=== PATIENT | female | born 1985 | race American Indian/Alaskan Native ===

== ENCOUNTER 2017-03-25 12:07 | Emergency (ER) | payer SELFPAY ==
[2017-03-25 12:34] VITALS: BP 125/85
--- NOTE | 2017-03-25 15:24 | Emergency Department Report ---
ED Rash HPI - HPI Chief Complaint: Skin Rash Stated Complaint: RASH Time Seen by Provider: 03/25/17 14:23 Duration: 1 month Location: Upper Extremities Suspected Cause: Unknown Rash Symptoms: Yes Itching, No Facial Swelling, No Tongue/Oral Swelling, No Breathing Difficulties, No Choking Sensation, No Wheezing/Dyspnea, No Peeling, No Blistering, No Fever, No Lightheaded, No Malaise, No Myalgias Severity: mild Other History: This is a 31-year-old female well-nourished with nontoxic or ill in appearance that presents with round, dry and patchy looking rash to the right upper extremity 1 month. Patient stated it is getting worse and itching. Patient denies any sick contact. Patient stated prior to symptoms she was in a hotel. Patient denies any fever, chills, chest pain, short of breath, stiff neck, numbness, tingling, nausea, vomiting, abdominal pain. Patient denies any allergies. Denies significant past medical history. ED Review of Systems ROS: Stated complaint: RASH Other details as noted in HPI Constitutional: denies: chills, fever Eyes: denies: eye pain, eye discharge, vision change ENT: denies: ear pain, throat pain Respiratory: denies: cough, shortness of breath, wheezing Cardiovascular: denies: chest pain, palpitations Endocrine: no symptoms reported Gastrointestinal: denies: abdominal pain, nausea, diarrhea Genitourinary: denies: urgency, dysuria, discharge Musculoskeletal: denies: back pain, joint swelling, arthralgia Skin: rash, pruritus. denies: lesions Neurological: denies: headache, weakness, paresthesias Psychiatric: denies: anxiety, depression Hematological/Lymphatic: denies: easy bleeding, easy bruising ED Past Medical Hx - Past Medical History Hx Hypertension: Yes (NO MEDS) Additional medical history: OBESITY - Surgical History Additional Surgical History: RIGHT ankle surgery. TONSILLECTOMY - Social History Smoking Status: Current Some Day Smoker Substance Use Type: Alcohol - Medications Home Medications: Home Medications Medication Instructions Recorded Confirmed Last Taken Type Clotrimazole/Betamethasone Dip 15 gm TP BID #1 cream..g. 03/25/17 Unknown Rx [Clotrimazole-Betamethasone Crm] Rash Exam - Exam General: Vital signs noted. No distress. Alert and acting appropriately. GENERAL: The patient is a well-developed, well-nourished female in no apparent distress. Patient is alert and acting appropriately for age. Alert and oriented 3, no apparent distress, normal gait, atraumatic. HEENT: Head is normocephalic and atraumatic. PERRL, Extraocular muscles are intact. Pupils are equal, round, and reactive to light and accommodation. Nares appeared normal. Mouth is well hydrated and without lesions. Mucous membranes are moist. Posterior pharynx clear of any exudate or lesions. Mouth is well hydrated and without lesions. Tonsils not erythematous or swollen. Uvula midline. Tongue elevated. Mucous members are moist. Posterior pharynx clear, no exudate or lesions. Patent airways. No pus or driange. no dental caries. no gingivitis. No dental abscess noted. NECK: Supple. No carotid bruits. No lymphadenopathy or thyromegaly.nontender. No meningitic signs are noted. LUNGS: Clear to auscultation. Non labor breathing. No intercostal retractions. Symmetrical with respiration, no wheezing, no rales, or crackles. HEART: Regular rate and rhythm without murmur, rubs or gallops. No reproducible. S1, S2 present, regular rate and rhythm without murmur, no rubs, no gallops. ABDOMEN: Soft, nontender, and nondistended. Positive bowel sounds. No hepatosplenomegaly was noted. No guarding or rebound tenderness, negative epigastric bruit. Negative psoas sign, negative cisneros sign, negative McBurneys sign EXTREMITIES: Without any cyanosis, clubbing, rash, lesions or edema. Peripheral pulses intact. Capillary refill less than 2 seconds. Full range of motion bilaterally. NEUROLOGIC: Cranial nerves II through XII are grossly intact. Alert and oriented x 3. Normal gait. Symmetrical strength and sensation. Reflexes 2+ throughout. Cerebellar testing normal. GCS score of 15. PSYCHIATRIC: Normal affect with no suicidal or homicidal ideations. skin: Right arm pruritic rash with circular/oval erythematous with scaling patch HEENT: No Periorbital Edema, No Conjuctival Injection, No Chemosis, No Perioral Edema, No Tongue Edema, No Uvular Edema, No Compromised Airway, No Drooling Lungs: Yes Good Air Exchange (Normal Breath Sounds), No Wheezes, No Ronchi, No Stridor, No Cough, No Labored Respirations, No Retractions, No Use of Accessory Muscles, No Other Abnormal Lung Sounds Heart: Yes Regular, No Murmur Skin: Yes Erythema (slight), Yes Other (pruritic circular/oval erythematous with scaling patch), No Urticarial Rash, No Maculopapular Rash, No Morbilliform rash, No Bulla(e), No Excoriations, No Weeping, No Tenderness, No Edema, No Encrustations Other: Positive: Abdomen Normal, Neurologic Normal, Musculoskeletal Normal ED Course Vital Signs 03/25/17 12:30 Temperature 97.7 F Pulse Rate 84 Respiratory 17 Rate Blood Pressure 125/85 O2 Sat by Pulse 100 Oximetry - Reevaluation(s) Reevaluation #1: 03/25/17 15:28 Patient is resting in bed with no signs of distress noted./ ED Medical Decision Making - Medical Decision Making Ed course: This is a 31-year-old female that presents with tinea corporis 1- Patient received clotrimazole 1% BID x3 weeks at discharge 2- patient instructed to follow up with a PCP in 3-5 days or if symptoms worsen return to emergency room as was possible 3- at time time of discharge, the patient does not seem toxic or ill in appearance. No acute signs of distress noted. Patient agrees to discharge treatment plan of care. No further questions noted by the patient. Critical care attestation.: If time is entered above; I have spent that time in minutes in the direct care of this critically ill patient, excluding procedure time. ED Disposition Clinical Impression: Tinea corporis Disposition: DC-01 TO HOME OR SELFCARE Is pt being admited?: No Does the pt Need Aspirin: No Condition: Stable Instructions: Betamethasone/Clotrimazole (On the skin), Tinea Corporis (ED) Additional Instructions: Take clotrimazole as prescribed. Follow-up with your primary care doctor 3-5 days or if symptoms worsen continue return to emergency room. Prescriptions: Clotrimazole/Betamethasone Dip [Clotrimazole-Betamethasone Crm] 15 gm TP BID #1 cream..g. Referrals: BOBBI BREWSTER JR, MD [Staff Physician] - 3-5 Days [facility] [Outside] - 3-5 Days [facility] [Outside] - 3-5 Days PRIMARY CARE, [Primary Care Provider] - 3-5 Days Forms: Work/School Release Form(ED)
== END 2017-03-25 15:53 | disposition home or self-care (01) ==
LOC: ED 12:07
DX: B35.4 Tinea corporis (principal); I10 Essential (primary) hypertension; F17.210 Nicotine dependence, cigarettes, uncomplicated
CPT/HCPCS: 99282

== ENCOUNTER 2017-07-31 12:23 | Emergency (ER) | payer SELFPAY ==
[2017-07-31 13:38] LABS: Bacteria,Urine 1+ /HPF (Negative); Bilirubin,Urine NEG (Negative); Blood,Urine SM (Negative); Ketones,Urine NEG (Negative); Leukocyte Esterase,Urine LG (Negative); Mucus,Urine 1+ /HPF; Nitrite,Urine NEG (Negative); Protein,Urine <15 mg/dL mg/dL (Negative); Urobilinogen,Urine < 2.0 mg/dL (<2.0)
[2017-07-31] MEDS ORDERED: TETRACAINE 0.5% OU PRN (18:35)
[2017-07-31] MEDS ORDERED: FUL-GLO OP ONE ×2 (18:38)
[2017-07-31] MEDS ORDERED: TETRACAINE 0.5% ONE (18:38)
[2017-07-31] MEDS ORDERED: BSS ONE (18:38)
[2017-07-31] MEDS ORDERED: BSS OU ONE (18:42)
--- NOTE | 2017-07-31 19:07 | Emergency Department Report ---
ED General Adult HPI - General Chief complaint: Eye Problems Stated complaint: LEFT EYE RED Source: patient Mode of arrival: Ambulatory Limitations: No Limitations - History of Present Illness Initial comments: 31 y/o F presents with left eye redness, crusting, and matting together of the eyes that started 2 days ago. no known eye trauma. She denies being a contact lens wearer, but admits to wearing glasses. Pt denies any eye pain, sensitivity , or vision loss. No reported blurried vision. [place] and states that she may have come in contact with someone who may have had an eye infection. She denies any pain, headache, n/v, or vision changes. Pt also admits to frequency, urgency, and dysuria. LMP: 07/15/17. Pt has been taking OTC azo for the symptoms that has been helping. Pt denies any LBP, suprapubic pain, discharge, chest pain, SOB, nausea, or vomiting. NKDA. -: days(s) (2 days) Location: eyes Severity scale (0 -10): 0 Associated Symptoms: denies: confusion, chest pain, cough, fever/chills, headaches, nausea/vomiting, shortness of breath, weakness Treatments Prior to Arrival: other (OTC azo) - Related Data Previous Rx's Medication Instructions Recorded Last Taken Type Clotrimazole/Betamethasone Dip 15 gm TP BID #1 cream..g. 03/25/17 Unknown Rx [Clotrimazole-Betamethasone Crm] Ciprofloxacin HCl [Ciloxan] 5 ml OP DAILY #1 bottle 07/31/17 Unknown Rx Nitrofurantoin [place]/M-Cryst 100 mg PO Q12HR #14 capsule 07/31/17 Unknown Rx [Macrobid CAP] Allergies Allergy/AdvReac Type Severity Reaction Status Date / Time No Known Allergies Allergy Verified 03/25/17 12:34 ED Review of Systems ROS: Stated complaint: LEFT EYE RED Other details as noted in HPI Constitutional: denies: chills, fever Eyes: eye discharge. denies: eye pain, vision change ENT: denies: ear pain, throat pain Respiratory: denies: cough, shortness of breath, wheezing Cardiovascular: denies: chest pain, palpitations Gastrointestinal: denies: abdominal pain, nausea, diarrhea Genitourinary: urgency, dysuria, frequency. denies: discharge, abnormal menses Musculoskeletal: denies: back pain, joint swelling, arthralgia Skin: denies: rash, lesions Neurological: denies: headache, weakness, paresthesias Psychiatric: denies: anxiety, depression ED Past Medical Hx - Past Medical History Hx Hypertension: Yes (NO MEDS) Additional medical history: OBESITY - Surgical History Additional Surgical History: RIGHT ankle surgery. TONSILLECTOMY - Social History Smoking Status: Never Smoker Substance Use Type: None - Medications Home Medications: Home Medications Medication Instructions Recorded Confirmed Last Taken Type Clotrimazole/Betamethasone Dip 15 gm TP BID #1 cream..g. 03/25/17 Unknown Rx [Clotrimazole-Betamethasone Crm] Ciprofloxacin HCl [Ciloxan] 5 ml OP DAILY #1 bottle 07/31/17 Unknown Rx Nitrofurantoin [place]/M-Cryst 100 mg PO Q12HR #14 capsule 07/31/17 Unknown Rx [Macrobid CAP] ED Physical Exam - General Limitations: No Limitations General appearance: alert, in no apparent distress - Head Head exam: Present: atraumatic, normocephalic - Eye Eye exam: Present: normal appearance, PERRL, EOMI, conjunctival injection (of the left eye), other (visual ash was wnl). Absent: periorbital swelling, periorbital tenderness Pupils: Present: normal accommodation, other (there was no periorbital or orbital swelling noted on examination, there was no TTP of the orbital/ periorbital regions) - Expanded Eye Exam Expanded Pupils: Regular, Round: Bilateral, Reactive: Bilateral Sclera/Conjunctival: Normal Inspection: Bilateral, Injection: Left (there was no evidence of foreign body with inverting the left upper eyelid) Anterior chamber: Normal Inspection: Bilateral Posterior chamber: Normal Inspection: Bilateral Visual acuity (R) = 20/: 20 Visual acuity (L) = 20/: 25 With correction: No IOP (L) in mmH (average of readings) IOP measured with: Tonopen - ENT ENT exam: Present: mucous membranes moist - Neck Neck exam: Present: normal inspection, full ROM - Respiratory Respiratory exam: Present: normal lung sounds bilaterally. Absent: respiratory distress - Cardiovascular Cardiovascular Exam: Present: regular rate, normal rhythm. Absent: systolic murmur, diastolic murmur, rubs, gallop - GI/Abdominal GI/Abdominal exam: Present: soft (there was no abdominal tenderness noted in all 4 quadrants, no suprapubic pain), normal bowel sounds, other (no suprapubic pain) - Back Exam Back exam: Present: normal inspection, full ROM. Absent: tenderness, CVA tenderness (R), CVA tenderness (L), muscle spasm - Neurological Exam Neurological exam: Present: alert, oriented X3, normal gait - Psychiatric Psychiatric exam: Present: normal affect, normal mood - Skin Skin exam: Present: warm, dry, intact, normal color. Absent: rash - Other Other exam information: flurosecien staining of the eye: 1. one tetracaine drop were used to numb the eye 2. then fluroscien dye was placed in the eye 3. eye was visualized for foreign bodies, ulcers, or abrasions there was no evidence of such 4. the eye was then irrigated with saline thoroughly tonometry: 1. one tetacaine drop was used to anesthesize the eye 2. IOP was measured and averaged about 16 mmHg ED Course Vital Signs 07/31/17 07/31/17 12:31 19:26 Temperature 98.9 F Pulse Rate 100 H 67 Respiratory 16 18 Rate Blood Pressure 118/85 Blood Pressure 135/91 [Left] O2 Sat by Pulse 100 100 Oximetry - Eye Procedure Alcaine Drops Administered: No ED Medical Decision Making - Medical Decision Making I spoke with Dr. Garcia regarding this case. She stated to treat pt for the conjunctivitis at this time. I treated with with ciloxan eye drops. I also treated her UTI with macrobid. The average IOP pressures were around 13 mmHg, there was no evidence of corneal ulcers, abrasions, or foreign bodies with the fluoroscein lighting. Visual ahs, EOMI, and pupils were normal and reactive to light. Visual acuity was slightly dimished in the affected eye due to the conjuncitivits. There was mild crusting noted of the left eye. There was no ttp or periorbital/orbital swelling. Pt was discharged in stable condition, no resp distress, and vitals were stable. Critical care attestation.: If time is entered above; I have spent that time in minutes in the direct care of this critically ill patient, excluding procedure time. ED Disposition Clinical Impression: Conjunctivitis Qualifiers: Conjunctivitis type: acute Acute conjunctivitis type: bacterial Laterality: left Qualified Code(s): H10.32 - Unspecified acute conjunctivitis, left eye UTI (urinary tract infection) Qualifiers: Urinary tract infection type: acute cystitis Hematuria presence: with hematuria Qualified Code(s): N30.01 - Acute cystitis with hematuria Disposition: TO HOME OR SELFCARE Is pt being admited?: No Does the pt Need Aspirin: No Condition: Stable Instructions: Ciprofloxacin (Into the eye), Nitrofurantoin Combination (By mouth) Additional Instructions: Please use the antibiotics as prescribed to you. A urine culture has been obtained. It is crucial that you follow-up with the plate finisher within this week. Please also follow-up with PCP to ensure resolution of your UTI. Please return to the ER immediately if your symptoms acutely worsen or progress. Prescriptions: Ciprofloxacin HCl [Ciloxan] 5 ml OP DAILY #1 bottle Nitrofurantoin Wayne/M-Cryst [Macrobid CAP] 100 mg PO Q12HR #14 capsule Referrals: PRIMARY CAREMD [Primary Care Provider] - 3-5 Days [facility] [Outside] - 3-5 Days [facility] [Outside] - 3-5 Days BHAVANI CARCAMO MD [Staff Physician] - 3-5 Days Forms: Work/School Release Form(ED)
[2017-07-31 19:27] VITALS: BP 135/91
== END 2017-07-31 20:31 | disposition home or self-care (01) ==
LOC: ED 12:23
DX: H10.32 Unspecified acute conjunctivitis, left eye (principal); N39.0 Urinary tract infection, site not specified; I10 Essential (primary) hypertension; E66.9 Obesity, unspecified; Z90.89 Acquired absence of other organs
CPT/HCPCS: 81001; 81025; 87086; 99283

== ENCOUNTER 2018-06-26 21:40 | Emergency (ER) | payer SELFPAY ==
[2018-06-26] MEDS ORDERED: ASPIRIN PO ONE (22:47)
[2018-06-26 23:22] LABS: Basophils # (Auto) 0.1 K/mm3 (0.0-0.1); Basophils % (Auto) 1.3 % (0.0-1.8); Eosinophils # (Auto) 0.2 K/mm3 (0.0-0.4); Eosinophils % (Auto) 3.1 % (0.0-4.3); Hemoglobin 12.8 gm/dl (10.1-14.3); Lymphocytes # (Auto) 2.4 K/mm3 (1.2-5.4); Lymphocytes % (Auto) 39.2 % (13.4-35.0); Mean Corpuscular HGB Conc 34 % (30-34); Mean Corpuscular Hemoglobin 30 pg (28-32); Mean Corpuscular Volume 89 fl (79-97); Monocytes # (Auto) 0.6 K/mm3 (0.0-0.8); Monocytes % (Auto) 9.9 % (0.0-7.3); Platelet Count 222 K/mm3 (140-440); Red Blood Count 4.28 M/mm3 (3.65-5.03)
--- NOTE | 2018-06-26 23:54 | Emergency Department Report ---
ED Chest Pain HPI - General Chief Complaint: Chest Pain Stated Complaint: CHEST PAIN AND COLD Time Seen by Provider: 06/26/18 23:47 Source: patient Mode of arrival: Ambulatory Limitations: No Limitations - History of Present Illness Initial Comments: Patient c/o chest pain and chest congestion x 3 days. Complaint: chest pain -: Gradual, days(s) (3) Onset: during rest Pain Location: substernal Pain Radiation: none Severity: mild Severity scale (0 -10): 2 Quality: aching Consistency: intermittent Improves With: nothing Worsens With: nothing Other Symptoms: cough Treatments Prior to Arrival: none Aspirin use within the Past 7 Days: (0) No - Related Data On Oral Contraceptives: No Previous Rx's Medication Instructions Recorded Last Taken Type Clotrimazole/Betamethasone Dip 15 gm TP BID #1 cream..g. 03/25/17 Unknown Rx [Clotrimazole-Betamethasone Crm] Ciprofloxacin HCl [Ciloxan] 5 ml OP DAILY #1 bottle 07/31/17 Unknown Rx Nitrofurantoin [place]/M-Cryst 100 mg PO Q12HR #14 capsule 07/31/17 Unknown Rx [Macrobid CAP] Amoxicillin/Potassium Clav 1 each PO BID #20 tablet 06/27/18 Unknown Rx [Augmentin 875-125 Tablet] Ibuprofen [Motrin] 800 mg PO Q8HR PRN #20 tablet 06/27/18 Unknown Rx Allergies Allergy/AdvReac Type Severity Reaction Status Date / Time No Known Allergies Allergy Verified 03/25/17 12:34 Heart Score - HEART Score History: Slightly suspicious EKG: Normal Age: < 45 Risk factors: No known risk factors Troponin: < normal limit HEART Score: 0 - Critical Actions Critical Actions: 0-3 pts:0.9-1.7%risk of adverse cardiac event.Candidate for discharge ED Review of Systems ROS: Stated complaint: CHEST PAIN AND COLD Other details as noted in HPI Comment: All other systems reviewed and negative Constitutional: denies: chills, fever Eyes: denies: eye pain ENT: denies: ear pain Respiratory: cough. denies: orthopnea, shortness of breath, SOB with exertion Cardiovascular: chest pain, other (Worse with coughing.). denies: palpitations , dyspnea on exertion, orthopnea, edema, syncope Endocrine: no symptoms reported Gastrointestinal: denies: abdominal pain, nausea, vomiting, diarrhea Genitourinary: denies: urgency, dysuria, frequency Musculoskeletal: denies: back pain, joint swelling Skin: denies: rash, lesions Neurological: denies: headache, weakness, numbness, paresthesias Psychiatric: denies: anxiety, depression Hematological/Lymphatic: denies: easy bleeding, easy bruising ED Past Medical Hx - Past Medical History Previous Medical History?: Yes Hx Hypertension: Yes (NO MEDS) Hx Asthma: Yes Additional medical history: OBESITY - Surgical History Past Surgical History?: Yes Additional Surgical History: RIGHT ankle surgery. TONSILLECTOMY - Social History Smoking Status: Never Smoker Substance Use Type: Alcohol - Medications Home Medications: Home Medications Medication Instructions Recorded Confirmed Last Taken Type Clotrimazole/Betamethasone Dip 15 gm TP BID #1 cream..g. 03/25/17 Unknown Rx [Clotrimazole-Betamethasone Crm] Ciprofloxacin HCl [Ciloxan] 5 ml OP DAILY #1 bottle 07/31/17 Unknown Rx Nitrofurantoin [place]/M-Cryst 100 mg PO Q12HR #14 capsule 07/31/17 Unknown Rx [Macrobid CAP] Amoxicillin/Potassium Clav 1 each PO BID #20 tablet 06/27/18 Unknown Rx [Augmentin 875-125 Tablet] Ibuprofen [Motrin] 800 mg PO Q8HR PRN #20 tablet 06/27/18 Unknown Rx ED Physical Exam - General Limitations: No Limitations General appearance: alert, in no apparent distress, obese - Head Head exam: Present: atraumatic, normocephalic, normal inspection - Eye Eye exam: Present: normal appearance, PERRL, EOMI Pupils: Present: normal accommodation - ENT ENT exam: Present: normal exam, normal orophraynx, mucous membranes moist - Neck Neck exam: Present: normal inspection, full ROM. Absent: tenderness - Respiratory Respiratory exam: Present: normal lung sounds bilaterally. Absent: respiratory distress, wheezes, rales, rhonchi, stridor - Cardiovascular Cardiovascular Exam: Present: regular rate, normal rhythm, normal heart sounds - GI/Abdominal GI/Abdominal exam: Present: soft, normal bowel sounds. Absent: distended, tenderness, guarding, rebound, rigid - Extremities Exam Extremities exam: Present: normal inspection, full ROM, normal capillary refill. Absent: tenderness - Back Exam Back exam: Present: normal inspection, full ROM. Absent: tenderness - Neurological Exam Neurological exam: Present: alert, oriented X3, CN II-XII intact - Psychiatric Psychiatric exam: Present: normal affect, normal mood - Skin Skin exam: Present: warm, dry, intact, normal color. Absent: rash ED Course Vital Signs 06/26/18 06/27/18 21:57 01:55 Temperature 98.8 F 97.9 F Pulse Rate 94 H 82 Respiratory 14 14 Rate Blood Pressure 124/87 Blood Pressure 139/92 [Left] O2 Sat by Pulse 98 100 Oximetry BENSON score - Benson Score Age > 65: (0) No Aspirin use within the Past 7 Days: (0) No 3 or more CAD Risk Factors: (0) No 2 or more Angina events in past 24 hrs: (0) No Known CAD with more than 50% Stenosis: (0) No Elevated Cardiac Markers: (0) No ST Deviation Greater than 0.5mm: (0) No BENSON Score: 0 ED Medical Decision Making - Lab Data Result diagrams: 06/26/18 22:59 06/26/18 22:49 Lab Results 06/26/18 06/26/18 06/26/18 Range/Units 22:49 22:59 23:52 WBC 6.2 (4.5-11.0) K/mm3 RBC 4.28 (3.65-5.03) M/mm3 Hgb 12.8 (10.1-14.3) gm/dl Hct 38.0 (30.3-42.9) % MCV 89 (79-97) fl MCH 30 (28-32) pg MCHC 34 (30-34) % RDW 14.0 (13.2-15.2) % Plt Count 222 (140-440) K/mm3 Lymph % (Auto) 39.2 H (13.4-35.0) % [place] % (Auto) 9.9 H (0.0-7.3) % Eos % (Auto) 3.1 (0.0-4.3) % Baso % (Auto) 1.3 (0.0-1.8) % Lymph # 2.4 (1.2-5.4) K/mm3 [place] # 0.6 (0.0-0.8) K/mm3 Eos # 0.2 (0.0-0.4) K/mm3 Baso # 0.1 (0.0-0.1) K/mm3 Seg Neutrophils % 46.5 (40.0-70.0) % Seg Neutrophils # 2.9 (1.8-7.7) K/mm3 D-Dimer (0-234) ng/mlDDU Sodium 143 (137-145) mmol/L Potassium 3.8 (3.6-5.0) mmol/L Chloride 106.1 (98-107) mmol/L Carbon Dioxide 23 (22-30) mmol/L Anion Gap 18 mmol/L BUN 9 (7-17) mg/dL Creatinine 0.6 L (0.7-1.2) mg/dL Estimated GFR > 60 ml/min BUN/Creatinine Ratio 15 % Glucose 82 (65-100) mg/dL Calcium 8.9 (8.4-10.2) mg/dL Troponin T < 0.010 (0.00-0.029) ng/mL NT-Pro-B Natriuret Pep (0-450) pg/mL HCG, Qual Negative (Negative) 06/26/18 06/27/18 06/27/18 Range/Units 23:57 01:18 01:18 WBC (4.5-11.0) K/mm3 RBC (3.65-5.03) M/mm3 Hgb (10.1-14.3) gm/dl Hct (30.3-42.9) % MCV (79-97) fl MCH (28-32) pg MCHC (30-34) % RDW (13.2-15.2) % Plt Count (140-440) K/mm3 Lymph % (Auto) (13.4-35.0) % [place] % (Auto) (0.0-7.3) % Eos % (Auto) (0.0-4.3) % Baso % (Auto) (0.0-1.8) % Lymph # (1.2-5.4) K/mm3 [place] # (0.0-0.8) K/mm3 Eos # (0.0-0.4) K/mm3 Baso # (0.0-0.1) K/mm3 Seg Neutrophils % (40.0-70.0) % Seg Neutrophils # (1.8-7.7) K/mm3 D-Dimer 170.37 (0-234) ng/mlDDU Sodium (137-145) mmol/L Potassium (3.6-5.0) mmol/L Chloride (98-107) mmol/L Carbon Dioxide (22-30) mmol/L Anion Gap mmol/L BUN (7-17) mg/dL Creatinine (0.7-1.2) mg/dL Estimated GFR ml/min BUN/Creatinine Ratio % Glucose (65-100) mg/dL Calcium (8.4-10.2) mg/dL Troponin T < 0.010 (0.00-0.029) ng/mL NT-Pro-B Natriuret Pep 32.87 (0-450) pg/mL HCG, Qual (Negative) - EKG Data -: EKG Interpreted by Me EKG shows normal: sinus rhythm Rate: normal (91) - EKG Data When compared to previous EKG there are: previous EKG unavailable Interpretation: normal EKG 06/26/18 23:56 No STEMI. - Radiology Data Radiology results: report reviewed, image reviewed CXR is negative. - Medical Decision Making Acute Bronchitis. Critical care attestation.: If time is entered above; I have spent that time in minutes in the direct care of this critically ill patient, excluding procedure time. ED Disposition Clinical Impression: Bronchitis Disposition: DC- TO HOME OR SELFCARE Is pt being admited?: No Does the pt Need Aspirin: No Condition: Stable Instructions: Acute Bronchitis (ED) Additional Instructions: Please follow up with your primary doctor or Dr Valdivia on Friday. Return to the ED if your condition worsens. Prescriptions: Amoxicillin/Potassium Clav [Augmentin 875-125 Tablet] 1 each PO BID #20 tablet Ibuprofen [Motrin] 800 mg PO Q8HR PRN #20 tablet PRN Reason: Pain , Severe (7-10) Referrals: PRIMARY CARE, [Primary Care Provider] - 3-5 Days SMILEY VALDIVIA DO [Staff Physician] - 3-5 Days Forms: Work/School Release Form(ED) Time of Disposition: 03:15
[2018-06-27] MEDS ORDERED: MORPHINE IV ONE (01:12)
[2018-06-27] MEDS ORDERED: ZOFRAN IV ONE (01:12)
[2018-06-27 01:21] LABS: BUN/Creatinine Ratio 15; Blood Urea Nitrogen 9 mg/dL (7-17); Calcium 8.9 mg/dL (8.4-10.2); Hemolysis Index 8
[2018-06-27] MEDS ORDERED: ASPIRIN ONE (02:05)
--- NOTE | 2018-06-27 02:51 | XRay Report ---
FINAL REPORT PROCEDURE: XR CHEST ROUTINE 2V TECHNIQUE: PA and lateral chest radiographs were obtained. CPT 23901 HISTORY: chest pain COMPARISON: No prior studies are available for comparison. FINDINGS: Heart: Normal. Mediastinum/Vessels: Normal. Lungs/Pleural space: Normal. Bony thorax: No acute osseous abnormality. Other: IMPRESSION: Normal examination.
[2018-06-27] MEDS ORDERED: AUGMENTIN 875 MG PO ONE (03:09)
[2018-06-27 04:00] VITALS: BP 122/90
== END 2018-06-27 04:01 | disposition home or self-care (01) ==
LOC: ED 21:40
DX: J45.909 Unspecified asthma, uncomplicated (principal); I10 Essential (primary) hypertension; Z90.89 Acquired absence of other organs; Z88.1 Allergy status to other antibiotic agents; E66.9 Obesity, unspecified
CPT/HCPCS: 36415; 71046; 80048; 83880; 84484; 84703; 85025; 85379; 93005; 93010; 96374; 96375; 99284; J2270; J2405

== ENCOUNTER 2019-08-28 16:10 | Emergency (ER) | payer SELFPAY ==
[2019-08-28 16:25] VITALS: BP 130/80
--- NOTE | 2019-08-28 16:52 | Emergency Department Report ---
Chief Complaint: Urogenital-Female Stated Complaint: ABDOMINAL PAIN Time Seen by Provider: 08/28/19 16:42 - HPI History of Present Illness: She is a very pleasant 33-year-old female who has experienced PMS symptoms for the last 3-4 months. NO hx of depression. No current SI. She's had severe mood changes and insomnia. She suspects that she is not getting enough rest with her 2 jobs. She denies any pain. Denies pelvic pain. She desires rest from work. She desires a work note for few days off. Medical screening exam performed and completed. No evidence of acute emergent condition. - Exam Vital Signs: Vital Signs 08/28/19 16:23 Temperature 98.8 F Pulse Rate 89 Respiratory 18 Rate Blood Pressure 130/80 O2 Sat by Pulse 100 Oximetry MSE screening note: Focused history and physical exam performed. Due to findings the following was ordered: ED Disposition for MSE Clinical Impression: PMS (premenstrual syndrome) Disposition: MED SCREENING EXAM-LEFT Is pt being admited?: No Does the pt Need Aspirin: No Condition: Stable Instructions: Premenstrual Syndrome (ED) Forms: Work/School Release Form(ED)
== END 2019-08-28 17:00 | disposition left against medical advice (07) ==
LOC: ED 16:10
DX: N94.3 Premenstrual tension syndrome (principal)
CPT/HCPCS: 99281

== ENCOUNTER 2019-10-09 20:10 | Emergency (ER) | payer SELFPAY ==
[2019-10-09] MEDS ORDERED: ACETAMINOPHEN 325 MG TAB ONE (22:06)
[2019-10-09] MEDS ORDERED: ACETAMINOPHEN 325 MG TAB PO ONE (22:58)
[2019-10-10] MEDS ORDERED: LIDOCAINE-MPF (1%) 10 MG/1 ML VIAL 5 ML ONE (02:46)
--- NOTE | 2019-10-10 03:12 | Emergency Department Report ---
ED Extremity Problem HPI - General Chief complaint: Wound/Laceration Stated complaint: LACERATION TO LT ARM Time Seen by Provider: 10/10/19 01:22 Source: patient Mode of arrival: Ambulatory Limitations: No Limitations - History of Present Illness Initial comments: 33 year old female presents to ED c/o laceration to volar left wrist. Patient states she tripped over some boxes while at home and fell and cut wrist on broken mirror. Patient reports pain and swelling to volar wrist. She is not up to date on tetanus. She reports no other symptoms at this time. MD Complaint: other (Left Wrist laceration) -: Sudden Time: 20:00 (yesterday) Severity scale (0 -10): 10 - Related Data Previous Rx's Medication Instructions Recorded Last Taken Type Clotrimazole/Betamethasone Dip 15 gm TP BID #1 cream..g. 03/25/17 Unknown Rx [Clotrimazole-Betamethasone Crm] Ciprofloxacin HCl [Ciloxan] 5 ml OP DAILY #1 bottle 07/31/17 Unknown Rx Nitrofurantoin [place]/M-Cryst 100 mg PO Q12HR #14 capsule 07/31/17 Unknown Rx [Macrobid CAP] Amoxicillin/Potassium Clav 1 each PO BID #20 tablet 06/27/18 Unknown Rx [Augmentin 875-125 Tablet] Ibuprofen [Motrin 800 MG tab] 800 mg PO Q8HR PRN #20 tablet 07/29/18 Unknown Rx traMADoL [Ultram 50 MG tab] 50 mg PO Q6HR PRN #20 tablet 07/29/18 Unknown Rx Ketorolac [Toradol] 10 mg PO Q6H PRN #20 tablet 10/10/19 Unknown Rx cephALEXin [Keflex] 500 mg PO Q8HR #21 cap 10/10/19 Unknown Rx Allergies Allergy/AdvReac Type Severity Reaction Status Date / Time ciprofloxacin [From Cipro] Allergy Itching Verified 06/27/18 04:00 ED Review of Systems ROS: Stated complaint: LACERATION TO LT ARM Other details as noted in HPI Comment: All other systems reviewed and negative Musculoskeletal: joint swelling, arthralgia Skin: other (Laceration) ED Past Medical Hx - Past Medical History Previous Medical History?: Yes Hx Hypertension: Yes (NO MEDS) Hx Asthma: Yes Additional medical history: OBESITY - Surgical History Past Surgical History?: Yes Additional Surgical History: RIGHT ankle surgery. TONSILLECTOMY - Social History Smoking Status: Never Smoker Substance Use Type: None - Medications Home Medications: Home Medications Medication Instructions Recorded Confirmed Last Taken Type Clotrimazole/Betamethasone Dip 15 gm TP BID #1 cream..g. 03/25/17 Unknown Rx [Clotrimazole-Betamethasone Crm] Ciprofloxacin HCl [Ciloxan] 5 ml OP DAILY #1 bottle 07/31/17 Unknown Rx Nitrofurantoin [place]/M-Cryst 100 mg PO Q12HR #14 capsule 07/31/17 Unknown Rx [Macrobid CAP] Amoxicillin/Potassium Clav 1 each PO BID #20 tablet 06/27/18 Unknown Rx [Augmentin 875-125 Tablet] Ibuprofen [Motrin 800 MG tab] 800 mg PO Q8HR PRN #20 tablet 07/29/18 Unknown Rx traMADoL [Ultram 50 MG tab] 50 mg PO Q6HR PRN #20 tablet 07/29/18 Unknown Rx Ketorolac [Toradol] 10 mg PO Q6H PRN #20 tablet 10/10/19 Unknown Rx cephALEXin [Keflex] 500 mg PO Q8HR #21 cap 10/10/19 Unknown Rx ED Physical Exam - General Limitations: No Limitations General appearance: alert, in no apparent distress - Head Head exam: Present: atraumatic, normocephalic, normal inspection - Respiratory Respiratory exam: Absent: respiratory distress - Cardiovascular Cardiovascular Exam: Present: regular rate - Extremities Exam Extremities exam: Present: other (~5cm linear laceration superficial noted to volar left wrist. Small amt of active bleeding, no apparent FB. No tendon or muscle injury. There are also very superficial linear abrasions in same area. Th ere is mild swelling and bruising to volar wrist. There is ttp volar wrist. No acute deformity. ROM of wrist is painful but otherwise she has Full ROM of wrist. pulses nl, sensation intact. ) - Laceration /Wound Repair Wrist Wound Location: upper extremity (Volar left wrist) Wound's Depth, Shape: superficial Wound Explored: clean Irrigated w/ Saline (ccs): 30 Betadine Prep?: Yes Anesthesia: 1% Lidocaine Volume Anesthetic (ccs): 7 Wound Repaired With: sutures Suture Size/Type: 4:0, proline Number of Sutures: 8 Layer Closure?: No Sterile Dressing Applied?: Yes Progress: patient tolerated well. no complications ED Medical Decision Making - Medical Decision Making patient with laceration to volar left wrist after accidentally falling unto mirror. Patient refused xray. Wound repaired by me. See procedure note for detail. wound care discussed with patient. Pt stable at this time for d/c. Critical care attestation.: If time is entered above; I have spent that time in minutes in the direct care of this critically ill patient, excluding procedure time. ED Disposition Clinical Impression: Laceration Disposition: DC-01 TO HOME OR SELFCARE Is pt being admited?: No Does the pt Need Aspirin: No Condition: Stable Instructions: Laceration (ED) Prescriptions: cephALEXin [Keflex] 500 mg PO Q8HR #21 cap Ketorolac [Toradol] 10 mg PO Q6H PRN #20 tablet PRN Reason: Pain Referrals: MAYAR COLE MD [Staff Physician] - 10/22/19 (Follow up for suture removal ) Forms: Work/School Release Form(ED) Time of Disposition: 03:15
[2019-10-10] MEDS ORDERED: NEOMY 3.5 MG/BACIT 400 UNITS/POLY B 5000 UNITS/GM OINT PACKET TP ONE (03:16)
[2019-10-10] MEDS ORDERED: TETANUS,DIPH,PERTUSS(ACELL) VACCINE 0.5 ML SYRINGE IM ONE (03:16)
== END 2019-10-10 03:43 | disposition home or self-care (01) ==
LOC: ED 20:10
DX: S61.512A Laceration without foreign body of left wrist, initial encounter (principal); I10 Essential (primary) hypertension; J45.909 Unspecified asthma, uncomplicated; W01.0XXA Fall on same level from slipping, tripping and stumbling without subsequent striking against object, initial encounter; Y93.89 Activity, other specified; Y92.89 Other specified places as the place of occurrence of the external cause; Y99.8 Other external cause status
CPT/HCPCS: 90471; 90715; 99282; A6250

== ENCOUNTER 2019-10-27 19:50 | Emergency (ER) | payer SELFPAY ==
--- NOTE | 2019-10-27 21:36 | Emergency Department Report ---
ED General Adult HPI - General Chief complaint: Laceration/Recheck/Suture Stated complaint: SUTURE REMOVAL Source: patient Mode of arrival: Ambulatory Limitations: No Limitations - History of Present Illness Initial comments: Patient is a 34 yo AA female who presents to the ED for left forearm laceration wound recheck and suture removal after fall on a piece of glass 2 weeks ago and sustaining a left forearm laceration. Patient states that she had sutures placed in this ED and was given prescription for oral antibiotics which she never purchased. Patient states the wound area is mildly swollen and indurated. Patient denies numbness, tingling or weakness of left forearm, fever and chills. MD Complaint: wound recheck, suture removal -: Sudden, week(s) (2) Location: upper extremity (left forearm) Radiation: non-radiation Severity scale (0 -10): 3 Quality: aching, sharp Consistency: constant Improves with: none Worsens with: none Associated Symptoms: denies other symptoms. denies: confusion, chest pain, diaphoresis, headaches, loss of appetite, malaise, nausea/vomiting, shortness of breath, other Treatments Prior to Arrival: none - Related Data Previous Rx's Medication Instructions Recorded Last Taken Type Clotrimazole/Betamethasone Dip 15 gm TP BID #1 cream..g. 03/25/17 Unknown Rx [Clotrimazole-Betamethasone Crm] Ciprofloxacin HCl [Ciloxan] 5 ml OP DAILY #1 bottle 07/31/17 Unknown Rx Nitrofurantoin [place]/M-Cryst 100 mg PO Q12HR #14 capsule 07/31/17 Unknown Rx [Macrobid CAP] Amoxicillin/Potassium Clav 1 each PO BID #20 tablet 06/27/18 Unknown Rx [Augmentin 875-125 Tablet] Ibuprofen [Motrin 800 MG tab] 800 mg PO Q8HR PRN #20 tablet 07/29/18 Unknown Rx traMADoL [Ultram 50 MG tab] 50 mg PO Q6HR PRN #20 tablet 07/29/18 Unknown Rx Ketorolac [Toradol] 10 mg PO Q6H PRN #20 tablet 10/10/19 Unknown Rx cephALEXin [Keflex] 500 mg PO Q8HR #21 cap 10/10/19 Unknown Rx Sulfamethoxazole/Trimethoprim 1 each PO BID #20 tablet 10/27/19 Unknown Rx [Bactrim DS TAB] Allergies Allergy/AdvReac Type Severity Reaction Status Date / Time ciprofloxacin [From Cipro] Allergy Itching Verified 06/27/18 04:00 ED Review of Systems ROS: Stated complaint: SUTURE REMOVAL Other details as noted in HPI Constitutional: denies: chills, fever Eyes: denies: eye pain, eye discharge, vision change ENT: denies: ear pain, throat pain Respiratory: denies: cough, shortness of breath, wheezing Cardiovascular: denies: chest pain, palpitations Endocrine: no symptoms reported Gastrointestinal: denies: abdominal pain, nausea, diarrhea Genitourinary: denies: urgency, dysuria, discharge Musculoskeletal: arthralgia (left forearm pain due to a suture wound). denies: back pain, joint swelling Skin: other (healed left forearm laceration wound pain). denies: rash, lesions Neurological: denies: headache, weakness, paresthesias Psychiatric: denies: anxiety, depression Hematological/Lymphatic: denies: easy bleeding, easy bruising ED Past Medical Hx - Past Medical History Hx Hypertension: Yes (NO MEDS) Hx Asthma: Yes Additional medical history: OBESITY - Surgical History Additional Surgical History: RIGHT ankle surgery. TONSILLECTOMY - Social History Smoking Status: Never Smoker Substance Use Type: None - Medications Home Medications: Home Medications Medication Instructions Recorded Confirmed Last Taken Type Clotrimazole/Betamethasone Dip 15 gm TP BID #1 cream..g. 03/25/17 Unknown Rx [Clotrimazole-Betamethasone Crm] Ciprofloxacin HCl [Ciloxan] 5 ml OP DAILY #1 bottle 07/31/17 Unknown Rx Nitrofurantoin [place]/M-Cryst 100 mg PO Q12HR #14 capsule 07/31/17 Unknown Rx [Macrobid CAP] Amoxicillin/Potassium Clav 1 each PO BID #20 tablet 06/27/18 Unknown Rx [Augmentin 875-125 Tablet] Ibuprofen [Motrin 800 MG tab] 800 mg PO Q8HR PRN #20 tablet 07/29/18 Unknown Rx traMADoL [Ultram 50 MG tab] 50 mg PO Q6HR PRN #20 tablet 07/29/18 Unknown Rx Ketorolac [Toradol] 10 mg PO Q6H PRN #20 tablet 10/10/19 Unknown Rx cephALEXin [Keflex] 500 mg PO Q8HR #21 cap 10/10/19 Unknown Rx Sulfamethoxazole/Trimethoprim 1 each PO BID #20 tablet 10/27/19 Unknown Rx [Bactrim DS TAB] ED Physical Exam - General Limitations: No Limitations General appearance: alert, in no apparent distress - Head Head exam: Present: atraumatic, normocephalic, normal inspection - Eye Eye exam: Present: normal appearance, PERRL, EOMI Pupils: Present: normal accommodation - ENT ENT exam: Present: normal exam, normal orophraynx, mucous membranes moist, TM's normal bilaterally, normal external ear exam - Neck Neck exam: Present: normal inspection, full ROM - Respiratory Respiratory exam: Present: normal lung sounds bilaterally. Absent: respiratory distress, wheezes, rales, rhonchi, chest wall tenderness, accessory muscle use, decreased breath sounds - Cardiovascular Cardiovascular Exam: Present: regular rate, normal rhythm, normal heart sounds. Absent: systolic murmur, diastolic murmur, rubs, gallop - GI/Abdominal GI/Abdominal exam: Present: soft, normal bowel sounds. Absent: guarding, hyperactive bowel sounds, hypoactive bowel sounds, organomegaly - Extremities Exam Extremities exam: Present: normal inspection, full ROM, tenderness (mildly tender left forearm healed wound with mild swelling and sutures in place), normal capillary refill - Back Exam Back exam: Present: normal inspection - Neurological Exam Neurological exam: Present: alert, oriented X3 - Psychiatric Psychiatric exam: Present: normal affect, normal mood - Skin Skin exam: Present: warm, dry, intact, normal color. Absent: rash Critical care attestation.: If time is entered above; I have spent that time in minutes in the direct care of this critically ill patient, excluding procedure time. ED Disposition Clinical Impression: Encounter for re-check of laceration wound, Visit for suture removal, Cellulitis of forearm, left Disposition: DC- TO HOME OR SELFCARE Is pt being admited?: No Does the pt Need Aspirin: No Condition: Stable Instructions: Cellulitis (ED), Wound Infection (ED) Additional Instructions: Take medications with food, drink plenty of fluids and follow up with your Primary Care Physician in 7-10 days for reevaluation. Return to the ED immediately if symptoms get worse. NO ALCOHOL CONSUMPTION ADVISED when on thi smedication Prescriptions: Sulfamethoxazole/Trimethoprim [Bactrim DS TAB] 1 each PO BID #20 tablet Referrals: PRIMARY CARE, [Primary Care Provider] - 3-5 Days Time of Disposition: 21:34 Print Language: CHINESE
== END 2019-10-27 21:39 | disposition home or self-care (01) ==
LOC: ED 19:50
DX: S51.812A Laceration without foreign body of left forearm, initial encounter (principal); L03.114 Cellulitis of left upper limb; J45.909 Unspecified asthma, uncomplicated; Z90.89 Acquired absence of other organs; Z79.899 Other long term (current) drug therapy; Z88.8 Allergy status to other drugs, medicaments and biological substances; W25.XXXA Contact with sharp glass, initial encounter; Y93.89 Activity, other specified; Y92.89 Other specified places as the place of occurrence of the external cause; Y99.8 Other external cause status
CPT/HCPCS: 99282

== ENCOUNTER 2020-08-15 01:36 | Emergency (ER) | payer SELFPAY ==
[2020-08-15] MEDS ORDERED: METOCLOPRAMIDE 10 MG TAB PO ONE (04:26)
[2020-08-15] MEDS ORDERED: diphenhydrAMINE 25 MG CAP PO ONE (04:26)
[2020-08-15] MEDS ORDERED: KETOROLAC 60 MG/2 ML INJ IM ONE (04:26)
--- NOTE | 2020-08-15 05:39 | Emergency Department Report ---
ED Headache HPI - General Chief Complaint: Headache Stated Complaint: HEADACHE Time Seen by Provider: 08/15/20 04:06 - History of Present Illness Initial Comments: Patient is a 34-year-old female presents emergency room with complaints of a frontal headache that began around JulyAugust 08. She states that she she had her menstrual cycle from August 04 to the . She states that after her menstrual cycles she has migraine headaches. She states that she has been having these for quite some time now. She is not currently on any medication. She states that she has been taking ibuprofen and Midol. She states that she sees headaches cyclically. She denies any nausea, vomiting, diarrhea, fever, cough, abdominal pain, chest pain, shortness of breath, vision changes, numbness, weakness, neck stiffness. No past medical history. Allergy to ciprofloxacin. Allergies/Adverse Reactions: Allergies ciprofloxacin [From Cipro] Allergy (Verified 06/27/18 04:00) Itching Home Medications: Ambulatory Orders Clotrimazole/Betamethasone Dip [Clotrimazole-Betamethasone Crm] 15 gm TP BID #1 cream..g. 03/25/17 Ciprofloxacin HCl [Ciloxan] 5 ml OP DAILY #1 bottle 07/31/17 Nitrofurantoin [place]/M-Cryst [Macrobid CAP] 100 mg PO Q12HR #14 capsule 07/31/17 Amoxicillin/Potassium Clav [Augmentin 875-125 Tablet] 1 each PO BID #20 tablet 06/27/18 Ibuprofen [Motrin 800 MG tab] 800 mg PO Q8HR PRN #20 tablet 07/29/18 traMADoL [Ultram 50 MG tab] 50 mg PO Q6HR PRN #20 tablet 07/29/18 Ketorolac [Toradol] 10 mg PO Q6H PRN #20 tablet 10/10/19 cephALEXin [Keflex] 500 mg PO Q8HR #21 cap 10/10/19 Sulfamethoxazole/Trimethoprim [Bactrim DS TAB] 1 each PO BID #20 tablet 10/27/19 Butalb/Acetaminophen/Caffeine [Fioricet 50-300-40 mg CAP] 1 cap PO Q8HR PRN #12 cap 08/15/20 ED Review of Systems ROS: Stated complaint: HEADACHE Other details as noted in HPI Comment: All other systems reviewed and negative ED Past Medical Hx - Past Medical History Hx Hypertension: Yes (NO MEDS) Hx Asthma: Yes Additional medical history: OBESITY - Surgical History Additional Surgical History: RIGHT ankle surgery. TONSILLECTOMY - Social History Smoking Status: Never Smoker Substance Use Type: None - Medications Home Medications: Home Medications Medication Instructions Recorded Confirmed Last Taken Type Clotrimazole/Betamethasone Dip 15 gm TP BID #1 cream..g. 03/25/17 Unknown Rx [Clotrimazole-Betamethasone Crm] Ciprofloxacin HCl [Ciloxan] 5 ml OP DAILY #1 bottle 07/31/17 Unknown Rx Nitrofurantoin [place]/M-Cryst 100 mg PO Q12HR #14 capsule 07/31/17 Unknown Rx [Macrobid CAP] Amoxicillin/Potassium Clav 1 each PO BID #20 tablet 06/27/18 Unknown Rx [Augmentin 875-125 Tablet] Ibuprofen [Motrin 800 MG tab] 800 mg PO Q8HR PRN #20 tablet 07/29/18 Unknown Rx traMADoL [Ultram 50 MG tab] 50 mg PO Q6HR PRN #20 tablet 07/29/18 Unknown Rx Ketorolac [Toradol] 10 mg PO Q6H PRN #20 tablet 10/10/19 Unknown Rx cephALEXin [Keflex] 500 mg PO Q8HR #21 cap 10/10/19 Unknown Rx Sulfamethoxazole/Trimethoprim 1 each PO BID #20 tablet 10/27/19 Unknown Rx [Bactrim DS TAB] Butalb/Acetaminophen/Caffeine 1 cap PO Q8HR PRN #12 cap 08/15/20 Unknown Rx [Fioricet 50-300-40 mg CAP] ED Physical Exam - General Limitations: No Limitations General appearance: alert, in no apparent distress - Head Head exam: Present: atraumatic, normocephalic - Eye Eye exam: Present: normal appearance, PERRL, EOMI. Absent: periorbital swelling, periorbital tenderness Pupils: Present: normal accommodation - ENT ENT exam: Present: mucous membranes moist - Neck Neck exam: Present: full ROM. Absent: meningismus - Respiratory Respiratory exam: Present: normal lung sounds bilaterally. Absent: respiratory distress, wheezes, rales, rhonchi, stridor, chest wall tenderness, accessory muscle use, decreased breath sounds, prolonged expiratory - Cardiovascular Cardiovascular Exam: Present: regular rate, normal rhythm, normal heart sounds. Absent: systolic murmur, diastolic murmur, rubs, gallop - Neurological Exam Neurological exam: Present: alert, oriented X3, CN II-XII intact, normal gait. Absent: motor sensory deficit - Psychiatric Psychiatric exam: Present: normal affect, normal mood - Skin Skin exam: Present: warm, dry, intact ED Course Vital Signs 08/15/20 08/15/20 01:49 03:54 Temperature 98.3 F Pulse Rate 83 Respiratory 20 Rate Blood Pressure 105/70 118/74 O2 Sat by Pulse 100 Oximetry ED Medical Decision Making - Medical Decision Making Patient is a 34-year-old female presents emergency room with complaints of a frontal headache that began around JulyAugust 08. She states that she she had her menstrual cycle from August 04 to the . She states that after her menstrual cycles she has migraine headaches. She states that she has been having these for quite some time now. She is not currently on any medication. She states that she has been taking ibuprofen and Midol. She states that she sees headaches cyclically. She denies any nausea, vomiting, diarrhea, fever, cough, abdominal pain, chest pain, shortness of breath, vision changes, numbness, weakness, neck stiffness. No past medical history. Allergy to ciprofloxacin. vitals are normal. No focal neuro deficits on exam, no clinical signs of sinusitis. Patient given Reglan, Benadryl, Toradol and headache completely resolved and patient was feeling much better ready to go home. Appears headaches are most likely related to hormonal migraines as she gets them cyclically at the end of her cycle. pt is not having thunderclap headache, has no focal neuro deficits, no meningeal signs. Patient given prescription for Fioricet. Patient will be referred to [facility]. Advised patient to follow-up with primary care doctor. Advised patient Please take medication as prescribed as needed. Increase your water intake. Follow-up with a primary care doctor. Follow-up with [facility]. Return to emergency room for new or worsening symptoms. Critical care attestation.: If time is entered above; I have spent that time in minutes in the direct care of this critically ill patient, excluding procedure time. ED Disposition Clinical Impression: Headache Qualifiers: Headache type: unspecified Headache chronicity pattern: acute headache Intractability: not intractable Qualified Code(s): R51.9 - Headache, unspecified Disposition: DC-01 TO HOME OR SELFCARE Is pt being admited?: No Does the pt Need Aspirin: No Condition: Stable Instructions: Migraine Headache, [id number] Additional Instructions: Please take medication as prescribed as needed. Increase your water intake. Follow-up with a primary care doctor. Follow-up with [facility]. Return to emergency room for new or worsening symptoms. Prescriptions: Butalb/Acetaminophen/Caffeine [Fioricet 50-300-40 mg CAP] 1 cap PO Q8HR PRN #12 cap PRN Reason: headache Referrals: PRIMARY CARE [Primary Care Provider] - 2-3 Days [facility] [Provider Group] - 2-3 Days [facility] [Provider Group] - 2-3 Days Time of Disposition: 05:38 Print Language: SOUTH [place]UDANESE
[2020-08-15 06:18] VITALS: BP 111/78
== END 2020-08-15 05:45 | disposition home or self-care (01) ==
LOC: ED 01:36
DX: R51.9 Headache, unspecified (principal); I10 Essential (primary) hypertension; J45.909 Unspecified asthma, uncomplicated; Z90.79 Acquired absence of other genital organ(s); Z79.899 Other long term (current) drug therapy; Z98.890 Other specified postprocedural states; Z88.1 Allergy status to other antibiotic agents
CPT/HCPCS: 96372; 99282; J1885

== ENCOUNTER 2021-09-06 02:17 | Emergency (ER) | payer SELFPAY ==
[2021-09-06] MEDS ORDERED: HYDROmorphone 1 MG/1 ML INJ IV ONE (02:28)
[2021-09-06] MEDS ORDERED: ONDANSETRON 4 MG/2 ML INJ IV ONE (02:28)
[2021-09-06] MEDS ORDERED: ceFAZolin/NS 1 GM/50 ML 1 GM/50 ML BAG IV ONE (02:28)
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
[2021-09-06 02:42] LABS: Basophils % (Auto) 0.5 % (0.0-1.8); Eosinophils # (Auto) 0.1 K/mm3 (0.0-0.4); Eosinophils % (Auto) 1.3 % (0.0-4.3); Hematocrit 39.7 % (30.3-42.9); Hemoglobin 12.7 gm/dl (10.1-14.3); Lymphocytes # (Auto) 4.3 K/mm3 (1.2-5.4); Lymphocytes % (Auto) 44.9 % (13.4-35.0); Mean Corpuscular HGB Conc 32 % (30-34); Mean Corpuscular Volume 91 fl (79-97); Monocytes # (Auto) 0.7 K/mm3 (0.0-0.8); Monocytes % (Auto) 7.6 % (0.0-7.3); Platelet Count 292 K/mm3 (140-440); Red Blood Count 4.39 M/mm3 (3.65-5.03); Red Cell Distribution Width 13.4 % (13.2-15.2)
[2021-09-06 02:55] LABS: BUN/Creatinine Ratio 13; Blood Urea Nitrogen 12 mg/dL (7-17); Calcium 8.3 mg/dL (8.4-10.2); Hemolysis Index 4
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
[2021-09-06 03:24] LABS: INR 0.97 (0.87-1.13)
[2021-09-06 03:25] LABS: Partial Thromboplastin Time 24.8 Sec. (24.2-36.6)
[2021-09-06 03:53] VITALS: BP 132/82
[2021-09-06] MEDS ORDERED: fentaNYL 100 MCG/2 ML INJ IV ONE (04:35)
== END 2021-09-06 05:00 | disposition short-term general hospital (02) ==
LOC: ED 02:17
DX: S42.351A Displaced comminuted fracture of shaft of humerus, right arm, initial encounter for closed fracture (principal); I10 Essential (primary) hypertension; J45.909 Unspecified asthma, uncomplicated; Z88.1 Allergy status to other antibiotic agents; Z79.899 Other long term (current) drug therapy; W34.00XA Accidental discharge from unspecified firearms or gun, initial encounter; Y93.89 Activity, other specified; Y92.89 Other specified places as the place of occurrence of the external cause; Y99.8 Other external cause status
CPT/HCPCS: 29105; 36415; 73060; 73090; 80048; 84703; 85025; 85610; 85730; 86850; 86900; 86901; 96365; 96375; 99291; J0690; J1170; J2405; J3010